=== PATIENT | female | born 1955 | race Asian ===

== ENCOUNTER → 2019-10-29 | Day surgery (SDC) | payer OTHER ==
--- NOTE | 2019-10-29 17:32 | OP ---
DATE OF OPERATION: 10/29/2019 PREOPERATIVE DIAGNOSIS: Left breast mass, 2 o'clock, 4 cm from the nipple. POSTOPERATIVE DIAGNOSIS: Left breast mass, 2 o'clock, 4 cm from the nipple. PROCEDURE: Left ultrasound guided core biopsy with clip placement. ANESTHESIA: Local attending. SURGEON: Jose Moran MD. ESTIMATED BLOOD LOSS: Minimal. COMPLICATIONS: None. DESCRIPTION OF PROCEDURE: Patient was made aware of the risks and benefits of the procedure and consented. She was placed in supine position, and under sterile conditions with 1% lidocaine for local anesthesia, a small carlos was made in the skin. Using a 10-gauge suction biopsy device, via lateral approach, under ultrasound guidance, multiple cores were obtained and submitted to pathology. Likewise under ultrasound guidance, a U-shaped clip was placed into the biopsy region. Well tolerated by patient. Steri-Strips and a sterile bandage were then applied. Will contact her with results. JOSE MORAN M.D. [id number]
--- NOTE | 2019-11-02 13:39 | PATH ---
Surgical Pathology Report Patient Name: LIAM GEORGE [facility]. Rec. #: [id number] /Age/Gender: 1955 (Age: 64) / F Account: [id number] [facility] U Taken: 10/29/2019 Received: 10/29/2019 Reported: 11/02/2019 Physicians: Kale Montiel M.D. Specimen(s) Received LEFT BREAST CORE BIOPSY 2:00 4FN Clinical History Palpable mass Ultrasound findings: Highly suspicious/malignant Final Diagnosis LEFT BREAST CORE BIOPSY 2:00, 4CM FN: INVASIVE DUCTAL CARCINOMA, MODERATELY DIFFERENTIATED, MEASURING 0.5 CM IN GREATEST DIMENSION ON THE SLIDE. Results of Estrogen Receptor (ER), Progesterone Receptor (NE), Her2 (IHC) and Ki-67 studies performed on this specimen at [place], [place] ([id number]) interpreted at [facility] are as follows: ER (clone [id number] mouse monoclonal antibody by [employer]): 100% nuclear staining with strong intensity (Positive). NE (clone16 mouse monoclonal antibody by [employer]): <1% nuclear staining (Negative). Her2 IHC (EP3 from [employer], formerly known as [id number], using [employer] Polymer Refine detection kit): Negative (0) Ki-67: ~10% (low proliferative index) Positive and negative controls (internal if applicable) show appropriate results. Formalin fixation and cold ischemic times are within current ASCO/CAP recommendations for ER, NE and Her2 testing. Comment: Immunohistochemical stains performed at [place], [place] ([id number]) and interpreted at [facility] show the following results: smooth muscle myosin heavy chain and p40 show loss of the myoepithelial cell layer in the areas of invasive carcinoma. The tumor cells show membranous staining for E-Cadherin and P120, support a ductal phenotype. Electronically Signed Khushi Peacock M.D. Gross Description Received in formalin labeled "left breast core biopsy 2:00, 4CMFN," is a 2.2 x 1.5 x 0.3 cm aggregate of multiple bosch-yellow, irregular to cylindrical portions of fibroadipose tissue. The formalin is filtered and the specimen is entirely submitted in one cassette. Time to formalin fixation: Less than one minute Total formalin fixation time: Approximately 6 hours. 10/29/2019 [facility]10/29/2019
== END | disposition home or self-care (01) ==
LOC: FRADUS-SUR 14:35
PROVIDERS: ATTEND Surgery Surgical Oncology
PROC: 0HBU3ZX Excision of Left Breast, Percutaneous Approach, Diagnostic (ICD-10-PCS; principal; 2019-10-29)
DX: C50.412 Malignant neoplasm of upper-outer quadrant of left female breast (principal); Z17.0 Estrogen receptor positive status [ER+]; N63.21 Unspecified lump in the left breast, upper outer quadrant
CPT/HCPCS: 19083; 87899; 88305-TC; A4648